=== PATIENT | female | born 1945 | race Caucasian/White ===

== ENCOUNTER 2019-11-24 00:26 | Emergency (ER) | payer OTHER, SELFPAY ==
--- NOTE | ~2019-11-24 | XR_ITS ---
EXAMINATION: XR chest 2V DATE: 11/24/2019 00:53 INDICATION: Left-sided chest pain TECHNIQUE: AP and lateral views of the chest are obtained. COMPARISON: 11/13/2017 FINDINGS: The lungs are free of acute opacities. There is no pleural effusion or pneumothorax. The ca rdiomediastinal silhouette is normal. There are bridging osteophytes at multiple levels in the spine, consistent with diffuse idiopathic skeletal hyperostosis (DISH). IMPRESSION: 1. No acute cardiopulmonary abnormality. Reviewed, dictated and finalized at location A. 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
[2019-11-24 00:27] VITALS: BP 143/81; PULSE 90; PULSE 91; RESP 16; TEMP 37.2; O2SAT 98
--- NOTE | 2019-11-24 00:38 | ECG_ITS ---
Measurements Intervals [place] Rate: 97 P: 46 LA: 151 QRS: -31 QRSD: 80 T: 52 QT: 349 QTc: 445 Interpretive Statements SINUS RHYTHM CONSIDER ANTEROSEPTAL INFARCT, AGE INDETERMINATE INFERIOR INFARCT, AGE INDETERMINATE BORDERLINE ST-T WAVE ABNORMALITY- LATERAL LEADS BASELINE ARTIFACT- I, III, AVL ABNORMAL ECG Electronically Signed On 11-24-2019 7:13:57 MEDICAL INSURANCE CLAIMS PROCESSOR by Blaine Malave D.O.
[2019-11-24 00:48] LABS: Basophils Absolute Auto 0.1 K/mm3 (0.0-0.1); Basophils Percent Auto 0.9 % (0.2-1.2); Eosinophils Absolute Auto 0.5 K/mm3 (0-0.3); Eosinophils Percent Auto 5.3 % (0-4.4); Hematocrit 43.6 % (37.0-47.0); Hemoglobin 14.7 g/dL (12.0-15.0); Immature Granulocyte Absolute 0.05 K/mm3 (0.00-0.031); Immature Granulocyte Percent A 0.5 % (0-0.5); Lymphocytes Absolute Auto 3.47 K/mm3 (0.9-3.2); Lymphocytes Percent Auto 35.6 % (18.3-44.2); Mean Corpuscular HGB Conc 33.7 g/dl (32-36); Mean Corpuscular Hemoglobin 29.5 pg (26-34); Mean Corpuscular Volume 87.4 fl (80-100); Mean Platelet Volume 11.1 fl (7.4-10.4); Monocytes Absolute Auto 0.7 K/mm3 (0.1-0.6); Monocytes Percent Auto 6.8 % (2.6-8.5); Neutrophils Percent Auto 50.9 % (45.5-73.1); Platelet Count Result 300 k/mm3 (150-375); Red Blood Count 4.99 M/mm3 (4.2-5.4); Red Cell Distribution Width 12.9 % (11.5-14.5); White Blood Count 9.8 K/mm3 (4.5-10.0)
[2019-11-24 00:58] LABS: INR 0.9; Prothrombin Time 12.1 Seconds (11.1-14.7)
[2019-11-24 00:59] LABS: Blood Urea Nitrogen 22 mg/dL (7-17); Calcium 9.5 mg/dL (8.4-10.2); Carbon Dioxide 29 mmol/L (22-30); Chloride 99 mmol/L (98-107); Estimated Glomerular Filt Rate 55; Glucose 114 mg/dL (65-105); Partial Thromboplastin Time 30.3 SECONDS (22.3-36.8); Potassium 4.3 mmol/L (3.4-5.0); Sodium 138 mmol/L (137-145)
[2019-11-24 01:11] LABS: Troponin I < 0.012 ng/mL (0.000-0.034)
--- NOTE | 2019-11-24 01:11 | ED.CHESTPAIN ---
HPI - Chest Pain General Chief Complaint: Chest Pain Stated Complaint: cp Time Seen by Provider: 11/24/19 01:12 Source: patient and RN notes reviewed Mode of arrival: EMS Limitations: no limitations History of Present Illness HPI narrative: Pt is a 74 y/o female presenting to the ED c/o CP. Pt reports she has been experiencing CP worsened with inhalation intermittently for a month. Pt states she experiencing intermittent sensations similar to a jesse horse that cause sharp pain. Pt states the painful sensations are usually on the lt side which radiate to her back, but are occasionally on the right. Pt states she went to an previously where she was prescribed Doxycycline. Pt also reports cough for 3 weeks, rash for 6 weeks on ABD, intermittent SOB, diaphoresis, and chronic BLE swelling, but denies jaw pain or arm pain. Pt states she has not had any recent air or long car travel nor does she receives estrogen therapy, but notes she does have a Hx of Diverticulitis. Pt denies being a smoker. Pt states she is not currently in any pain in her ED bed. Pertinent past history: other (None) Onset (ago): month(s) (1) Timing of current episode: episodic Pain location: left chest and right chest Pain radiation: back Exacerbating factors: other (Inhalation) Associated symptoms: diaphoresis, dyspnea (Intermittent), cough, leg swelling (Chronic) and other (Rash on ABD) Related Data Home Medications Medication Instructions Recorded Confirmed benzonatate 100 mg PO TID 11/24/19 doxycycline hyclate 100 mg PO DAILY 11/24/19 levothyroxine 125 mcg PO DAILY 11/24/19 lisinopril-hydrochlorothiazide 1 tablet PO DAILY 11/24/19 Allergies Allergy/AdvReac Type Severity Reaction Status Date / Time Penicillins Allergy Unknown Unknown Verified 11/24/19 00:34 Sulfa (Sulfonamide Allergy Unknown Flushing Verified 11/24/19 00:34 Antibiotics) Review of Systems Review of Systems: Narrative: CARDIOVASCULAR: Reports intermittent bilateral chest pain radiating to back. RESPIRATORY: Reports cough and intermittent dyspnea. SKIN: Reports rash on abdomen and diaphoresis. MUSCULOSKELETAL: Reports chronic BLE swelling. Denies jaw pain or arm pain. All systems reviewed & are unremarkable except as noted in HPI and below PMFSH Past Medical History Medical History HTN (hypertension) Hypothyroid Surgical History Surgical History H/O Spinal surgery H/O: hysterectomy Family History Family History Sibling Patient's sister is in good health Mother Family history of malignant neoplasm Patient's mother is Father Patient's father is Social History Social History Smoking status: Never smoker Alcohol intake: current Gender identity (if verbalized by the patient): Female Exam Narrative: Exam Narrative: GENERAL: Well-appearing, well-nourished, and in no acute distress. EYES: EOMI. NECK: Supple. CHEST: Clear to auscultation. No respiratory distress. Rt sided chest wall tenderness that reproduces pain. HEART: Regular rate and rhythm. No murmur heard. Normal peripheral pulses. ABDOMEN: Nondistended. EXTREMITIES: Normal range of motion. No edema. SKIN: Warm, dry, no rash. NEURO: No focal deficits. Alert and oriented. Course Vital Signs Vital signs: Vital Signs Temperature 37.2 C 11/24/19 00:27 Pulse Rate 90 11/24/19 00:27 Respiratory Rate 16 11/24/19 00:27 Blood Pressure 143/81 H 11/24/19 00:27 Pulse Oximetry 98 11/24/19 00:27 Temperature 37.2 C 11/24/19 00:27 Pulse Rate 84 11/24/19 04:45 Respiratory Rate 18 11/24/19 04:45 Blood Pressure 134/64 11/24/19 04:45 Pulse Oximetry 99 11/24/19 04:45 MDM - Chest Pain MDM Narrative Medical decision making narrative: Patient's EKG and labs ar
[2019-11-24 01:48] LABS: D Dimer 0.29 ug/mL (<0.48)
[2019-11-24] MEDS: KETOROLAC 15 MG/ML VIAL (*BKC) IV PUSH (01:48)
[2019-11-24] MEDS: SODIUM CHLORIDE 0.9% IV 1,000 ML 999 ML IV CONT (01:49)
[2019-11-24 02:16] VITALS: BP 105/41; PULSE 82; RESP 18; O2SAT 97
[2019-11-24 04:18] LABS: Troponin I < 0.012 ng/mL (0.000-0.034)
[2019-11-24 04:45] VITALS: BP 134/64; PULSE 84; RESP 18; O2SAT 99
--- NOTE | 2019-12-21 06:14 | PC.NURSE ---
LATE ENTRY This note is being entered to document information to the patient's record. The following information was omitted on [11/24/19], by [tri]. 1L NS infusion complete at 0240
== END 2019-11-24 04:48 | disposition home or self-care (01) ==
PROVIDERS: Emergency Provider Emergency Medicine; PCP Internal Medicine
DX: R07.89 Other chest pain (principal); I10 Essential (primary) hypertension; E03.9 Hypothyroidism, unspecified
CPT/HCPCS: 36415; 71046; 80048; 84484; 85025; 85380; 85610; 85730; 93005; 96360; 96361; 96374; 99284; J1885; J7030

== ENCOUNTER 2020-08-05 09:24 | Outpatient (CLI) | payer OTHER, SELFPAY ==
--- NOTE | ~2020-08-05 | US_ITS ---
EXAMINATION:US venous doppler LE LT INDICATION:Left leg pain and swelling TECHNIQUE: Multiple grayscale, color flow and Doppler images of the left lower extremity deep venous systems were obtained and reviewed. COMPARISON:No prior studies for comparison. FINDINGS: The common femoral, superficial femoral and popliteal veins demonstrate normal respiratory variation, augmentation and compressibility. Color flow is also seen within the posterior tibial, pe roneal, greater saphenous and profunda veins. IMPRESSION: 1: No lower extremity deep venous thrombosis. Reviewed, dictated and finalized at location B.
== END 2020-08-05 09:25 | disposition home or self-care (01) ==
PROVIDERS: PCP Internal Medicine; Visit Provider Nurse Practitioner
DX: M79.89 Other specified soft tissue disorders (principal)
CPT/HCPCS: 93971

== ENCOUNTER 2021-02-02 08:14 | Outpatient (CLI) | payer OTHER, SELFPAY ==
[2021-02-02 08:38] LABS: Alanine Aminotransferase 26 U/L (4-35); Albumin Level 4.5 g/dL (3.5-5.1); Alkaline Phosphatase 77 U/L (38-126); Anion Gap 8 mmol/L (8-16); Aspartate Amino Transferase 37 U/L (14-36); Bilirubin,Total 0.6 mg/dL (0.2-1.3); Blood Urea Nitrogen 23 mg/dL (7-17); Calcium 9.3 mg/dL (8.4-10.2); Carbon Dioxide 30 mmol/L (22-30); Chloride 102 mmol/L (98-107); Estimated Glomerular Filt Rate 49; Glucose 111 mg/dL (65-105); Potassium 4.3 mmol/L (3.4-5.0); Sodium 140 mmol/L (137-145)
[2021-02-02 09:09] LABS: Vitamin D 25 Hydroxy 39.6 ng/mL
[2021-02-02 09:33] LABS: Hemoglobin A1C 5.2 % (<5.7)
== END 2021-02-02 08:15 | disposition home or self-care (01) ==
PROVIDERS: PCP Internal Medicine; Visit Provider Nurse Practitioner
DX: Z79.899 Other long term (current) drug therapy (principal); E03.9 Hypothyroidism, unspecified; R73.02 Impaired glucose tolerance (oral); E55.9 Vitamin D deficiency, unspecified
CPT/HCPCS: 36415; 80053; 82306; 83036; 84443

== ENCOUNTER → 2021-08-31 02:54 | Outpatient (CLI) | payer OTHER, SELFPAY ==
[2021-08-31 19:23] LABS: SARS-CoV-2 RNA PCR Negative
== END ==
PROVIDERS: PCP Internal Medicine; Visit Provider Internal Medicine
DX: R68.89 Other general symptoms and signs (principal); Z20.822 Contact with and (suspected) exposure to COVID-19
CPT/HCPCS: C9803; U0003; U0005

== ENCOUNTER → 2021-12-01 08:03 | Outpatient (CLI) | payer OTHER, SELFPAY ==
[2021-12-01 20:41] LABS: SARS-CoV-2 RNA PCR Positive
== END ==
PROVIDERS: PCP Internal Medicine; Visit Provider Internal Medicine
DX: U07.1 COVID-19 (principal); R68.89 Other general symptoms and signs
CPT/HCPCS: C9803; U0003; U0005

== ENCOUNTER 2021-12-05 07:40 | Outpatient (RCR) | payer OTHER, SELFPAY ==
[2021-12-05 12:06] VITALS: BP 146/70; PULSE 92; RESP 20; TEMP 36.2; O2SAT 99
[2021-12-05] MEDS: FAMOTIDINE 20 MG TABLET PO (12:09)
[2021-12-05] MEDS: ACETAMINOPHEN 325 MG TABLET 650 MG PO (12:09)
[2021-12-05] MEDS: diphenhydrAMINE HCl CAP 25 MG CAPSULE PO (12:09)
[2021-12-05 13:38] VITALS: BP 137/70; PULSE 77; O2SAT 97
== END 2021-12-05 16:00 ==
LOC: AMCINF 07:40
PROVIDERS: PCP Internal Medicine; Visit Provider Internal Medicine Hematology & Oncology
DX: U07.1 COVID-19 (principal); I10 Essential (primary) hypertension
CPT/HCPCS: A9270; M0243; Q0244

== ENCOUNTER 2022-01-25 14:06 | Emergency (ER) | payer OTHER, SELFPAY ==
--- NOTE | ~2022-01-25 | CT_ITS ---
EXAMINATION: CT abdomen pelvis w con INDICATION: Left lower quadrant pain TECHNIQUE: Computed tomographic images of the abdomen and pelvis were obtained after the administrati on of 100 cc of Omnipaque 350 intravenous contrast. The dose-length product (DLP) was 504.90 mGy-cm. Automated exposure control and iterative reconstruction technique were employed. COMPARISON: None available FINDINGS: Minimal dependent atelectasis is present in the lung bases. The heart size is normal. The g allbladder is surgically absent. There is mild enlargement of the common bile duct and central intrah epatic ducts which is likely due to post cholecystectomy state. The liver is diffusely low in attenua tion when compared with the spleen, consistent with hepatic steatosis. The spleen, pancreas, and adre nal glands are normal. Cysts of the kidneys measure up to 6 mm on right. Colonic diverticulosis is no myesha. There is wall thickening of the proximal sigmoid colon with edematous stranding of the adjacent pericolic fat. There is no evidence of abscess or perforation. No pathologically enlarged abdominal o r pelvic lymph nodes are identified. There are no dilated loops of bowel. A small fat-containing umbi lical hernia is noted. There is calcified atherosclerosis. There is severe lumbar spondylosis. IMPRESSION: 1. Acute, uncomplicated diverticulitis of the proximal sigmoid colon. 2. Diffuse hepatic steatosis. Reviewed, dictated and finalized at location B. INSERTER
[2022-01-25 14:08] VITALS: BP 153/79; PULSE 82; RESP 18; TEMP 37.2; O2SAT 98
[2022-01-25 14:38] LABS: Basophils Absolute Auto 0.1 K/mm3 (0.0-0.1); Basophils Percent Auto 0.5 % (0.2-1.2); Eosinophils Absolute Auto 0.5 K/mm3 (0-0.3); Eosinophils Percent Auto 3.3 % (0-4.4); Hematocrit 41.4 % (37.0-47.0); Hemoglobin 14.2 g/dL (12.0-15.0); Immature Granulocyte Absolute 0.04 K/mm3 (0.00-0.031); Immature Granulocyte Percent A 0.3 % (0-0.5); Lymphocytes Absolute Auto 2.29 K/mm3 (0.9-3.2); Lymphocytes Percent Auto 16.2 % (18.3-44.2); Mean Corpuscular HGB Conc 34.3 g/dl (32-36); Mean Corpuscular Hemoglobin 29.2 pg (26-34); Mean Corpuscular Volume 85.2 fl (80-100); Mean Platelet Volume 10.8 fl (7.4-10.4); Monocytes Absolute Auto 1.1 K/mm3 (0.1-0.6); Monocytes Percent Auto 7.6 % (2.6-8.5); Neutrophils Absolute Auto 10.2 K/mm3 (1.3-6.7); Neutrophils Percent Auto 72.1 % (45.5-73.1); Platelet Count Result 282 k/mm3 (150-375); Red Blood Count 4.86 M/mm3 (4.2-5.4); Red Cell Distribution Width 12.4 % (11.5-14.5); White Blood Count 14.1 K/mm3 (4.5-10.0)
[2022-01-25 14:45] LABS: Add Urine Microscopic? YES; Appearance Urine Cloudy (Clear); Bacteria Urine Trace /hpf; Bilirubin Urine Negative (Negative); Blood Urine Negative (Negative); Budding Yeast Urine Present /hpf; Color Urine Yellow (Yellow); Glucose Urine UA Negative (Negative); Ketones Urine Negative (Negative); Leukocyte Esterase Ur 2+ LEU/UL (Negative); Mucus Urine Rare /lpf; Nitrate Urine Negative (Negative); Protein Urine Negative (Negative); Specific Grav Ur 1.017 (1.001-1.035); Squamous Epithelial Cell Urine Few /hpf (Few); Urobilinogen Urine Negative mg/dL (<2.0)
[2022-01-25 14:49] LABS: Alanine Aminotransferase 40 U/L (4-35); Albumin Level 4.5 g/dL (3.5-5.1); Alkaline Phosphatase 92 U/L (38-126); Anion Gap 6 mmol/L (8-16); Aspartate Amino Transferase 41 U/L (14-36); Bilirubin,Total 0.7 mg/dL (0.2-1.3); Blood Urea Nitrogen 21 mg/dL (7-17); Calcium 9.2 mg/dL (8.4-10.2); Carbon Dioxide 26 mmol/L (22-30); Chloride 103 mmol/L (98-107); Estimated CRCL calculation 51 ml/min; Estimated Glomerular Filt Rate > 60; Glucose 111 mg/dL (65-110); Lipase 158 U/L (23-300); Potassium 4.5 mmol/L (3.4-5.0); Sodium 135 mmol/L (137-145)
--- NOTE | 2022-01-25 15:08 | ED.ABDPAIN ---
HPI - Abdominal Pain General Chief Complaint: Abdominal Pain Stated Complaint: ABD pain Time Seen by Provider: 01/25/22 15:05 Source: RN notes reviewed History of Present Illness HPI narrative: Patient presents emergency room from home for abdominal pain. Patient states abdominal pain began last night pain is located left lower quadrant does not radiate. Described as sharp and stabbing. Patient states she does have a history of diverticulitis and feels similar. She denies any fevers or chills chest pain shortness of breath, nausea vomiting diarrhea or any other symptoms. States she took Aleve at home for the pain with minimal relief. States last colonoscopy was 10 years ago Related Data Home Medications Medication Instructions Recorded Confirmed aspirin 81 mg tablet,delayed 81 mg PO DAILY 01/13/20 12/05/21 release Allergies Allergy/AdvReac Type Severity Reaction Status Date / Time Penicillins Allergy Unknown Unknown Verified 12/05/21 12:02 Sulfa (Sulfonamide Allergy Unknown Flushing Verified 12/05/21 12:02 Antibiotics) Review of Systems Review of Systems: Gen.: Denies fevers or chills ENT: Denies congestion Respiratory: Denies shortness of breath or cough CV: Denies chest pain or palpitations GI: See HPI denies burning, urgency, frequency or hematuria Musculoskeletal: Denies back pain or muscle pain Neuro: Denies numbness, tingling, weakness or focal weakness Skin: Denies rash Except as documented, all other systems reviewed and negative PMFSH Past Medical History Medical History (Updated 01/25/22 @ 16:40 by Shay Liu DO) HTN (hypertension) Hypothyroid Surgical History Surgical History H/O Spinal surgery H/O: hysterectomy Family History Family History Sibling Patient's sister is in good health Mother Family history of malignant neoplasm Patient's mother is Father Patient's father is Social History Social History Smoking status: Never smoker Alcohol intake: current Alcohol use details: social Gender identity (if verbalized by the patient): Female Exam Narrative: APPEARANCE: No acute distress, nontoxic, resting in bed HEENT: Normocephalic, atraumatic, OMM RESPIRATORY: No respiratory distress, clear to auscultation bilaterally with no rhonchi wheezing or rales CARDIOVASCULAR: RRR s murmur ABDOMINAL: Soft nondistended tender palpation left lower quadrant no tenderness left upper quadrant, right upper quadrant right lower quadrant no rebound or guarding MUSCULOSKELETAl: Moves all extremities. No clubbing, cyanosis or edema. NEURO: Awake and alert. Following commands, speech normal, no focal deficits SKIN:: Warm, dry. Normal Color PSYCHIATRIC: Normal affect/mood Course Course Emergency Course: Discussed with Dr. Gao presentation work-up agrees plan for discharge [facility] Discussed with patient results of workup and diagnosis. Repeat abdominal exam is soft with tenderness left lower quadrant but no surgical present. The patient does prefer to go home discussed need for follow-up with primary care, proper use of medication, and reasons to return to the emergency department. Patient understands and agrees to current treatment plan Vital Signs Vital signs: Vital Signs Temperature 99 F 01/25/22 14:08 Pulse Rate 82 01/25/22 14:08 Respiratory Rate 18 01/25/22 14:08 Blood Pressure 153/79 H 01/25/22 14:08 Pulse Oximetry 98 01/25/22 14:08 Temperature 99 F 01/25/22 14:08 Pulse Rate 82 01/25/22 14:08 Respiratory Rate 18 01/25/22 14:08 Blood Pressure 149/74 H 01/25/22 15:12 Pulse Oximetry 97 01/25/22 16:00 MDM - Abdominal Pain Lab Data Result diagrams: 01/25/22 14:19 01/25/22 14:19
[2022-01-25 15:12] VITALS: BP 149/74; O2SAT 97
[2022-01-25 15:28] VITALS: O2SAT 97
[2022-01-25] MEDS: SODIUM CHLORIDE 0.9% IV 1,000 ML 999 ML IV CONT (15:29)
[2022-01-25 15:35] VITALS: O2SAT 96
[2022-01-25 15:45] VITALS: O2SAT 96
[2022-01-25 16:00] VITALS: O2SAT 97
[2022-01-25] MEDS: CIPROFLOXACIN 500 MG TAB PO (16:17)
[2022-01-25] MEDS: metroNIDAZOLE 250 MG TABLET 500 MG PO (16:18)
[2022-01-25] MEDS: MORPHINE SULFATE (*CRX) 2 MG/ML INJ IV PUSH (16:24)
== END 2022-01-25 17:08 | disposition home or self-care (01) ==
PROVIDERS: Emergency Medicine; Emergency Provider Emergency Medicine; PCP Internal Medicine
DX: R10.9 Unspecified abdominal pain (principal); K57.92 Diverticulitis of intestine, part unspecified, without perforation or abscess without bleeding; K76.0 Fatty (change of) liver, not elsewhere classified; I10 Essential (primary) hypertension; E03.9 Hypothyroidism, unspecified
CPT/HCPCS: 36415; 74177; 80053; 81001; 83690; 85025; 96361; 96374; 96375; 99284; A9270; J0131; J2270; J7030; Q9967

== ENCOUNTER 2022-10-13 09:24 | Outpatient (CLI) | payer OTHER, SELFPAY ==
[2022-10-13 10:25] LABS: Alanine Aminotransferase 35 U/L (6-35); Albumin Level 4.5 g/dL (3.5-5.1); Alkaline Phosphatase 71 U/L (38-126); Anion Gap 9 mmol/L (8-16); Aspartate Amino Transferase 33 U/L (14-36); Bilirubin,Total 0.8 mg/dL (0.2-1.3); Blood Urea Nitrogen 19 mg/dL (7-17); Carbon Dioxide 27 mmol/L (22-30); Chloride 104 mmol/L (98-107); Cholesterol 223 mg/dL (0-200); Estimated Glomerular Filt Rate > 60; Glucose 108 mg/dL (65-110); HDL Direct 41 mg/dL; Sodium 140 mmol/L (137-145); Triglycerides 244 mg/dL (<150)
[2022-10-13 10:36] LABS: LDL Cholesterol Direct 108 mg/dL
[2022-10-13 10:55] LABS: Thyroid Stimulating Hormone 0.285 uIU/mL (0.465-4.680)
== END 2022-10-13 09:25 | disposition home or self-care (01) ==
PROVIDERS: PCP Internal Medicine; Visit Provider Nurse Practitioner
DX: E03.9 Hypothyroidism, unspecified (principal); E78.5 Hyperlipidemia, unspecified
CPT/HCPCS: 36415; 80053; 80061; 84443

== ENCOUNTER 2022-10-25 12:55 | Outpatient (CLI) | payer OTHER, SELFPAY ==
--- NOTE | ~2022-10-25 | DEXA_ITS ---
Bone Density Report Name: AALIYAH VALENCIA Age: 77 Sex: Female Ethnicity: White Date of : 1945 Indication: postmenopausal; screening for osteoporosis; parental hip fracture; height loss; asthma or emphysema; hysterectomy; secondary osteoporosis; Referring Provider: MAIDA BUTT Study: Bone densitometry was performed. Exam Date: October 25, 2022 Accession number: [id number] Bone Density: Region BMD T-score Z-score Classification AP Spine(L1-L4) 1.053 0.1 2.5 Normal Femoral Neck (Left) 0.716 -1.2 0.9 Osteopenia Total Hip (Left) 0.901 -0.3 1.5 Normal Femoral Neck (Right) 0.670 -1.6 0.5 Osteopenia Total Hip (Right) 0.825 -1.0 0.8 Normal Total Hip Mean 0.863 -0.7 1.2 Normal World Health Organization criteria for BMD impression classify patients as: Normal (T-score at or above -1.0), Osteopenia (T-score between -1.0 and -2.5), or Osteoporosis (T-score at or below -2.5). 10-year Fracture Risk(1): Major Osteoporotic Fracture 20% Hip Fracture 10% Reported Risk Factors: [place] (), Neck BMD=0.670, BMI=28.2, parental fracture, secondary osteoporosis (1) FRAX(R) Version 3.08. Fracture probability calculated for an untreated patient. Fracture probability may be lower if the patient has received treatment. Clinical Information Provided by Patient: Parent has had a hip fracture Has secondary osteoporosis Has used the following medications: Vitamin D Has the following medical conditions: Asthma or Emphysema, Hysterectomy Patient maximum height was 64 Menopause Age: 35 No regular weight bearing exercise Drinks caffeinated beverages Onset of menses at age 16 Number of children 3 Impression: The patient has low bone mass, based on the Right Femoral Neck T-score. The patient has an estimated ten-year risk of hip fracture of 10% and an estimated ten-year risk of major fracture of 20%, based on the WHO FRAX algorithm. The patient has risk factors, including: parental hip fracture. Discussion: BONE DENSITY IS LOW AT ONE OR MORE SKELETAL SITES. THE PATIENT'S BMD AND CLINICAL RISK FACTORS CONTRIBUTE TO THIS PATIENT'S HIGH RISK OF FRACTURE. This patient's lowest T-score is low at one or more skeletal sites. It meets the World Health Organization's (WHO) criteria for ?low bone mass? (T-score between -1.0 and -2.5). The patient's 10-year risk of hip fracture and 10 year risk of a major osteoporotic fracture as calculated by FRAX exceeds the threshold where pharmacological therapy is recommended by the National Osteoporosis Foundation (NOF). However, all treatment decisions require clinical judgment and consideration of individual patient factors, including patient preferences, comorbidities, previous drug use, risk factors not captured in the FRAX model (e.g., frailty, falls, v
== END 2022-10-25 12:56 | disposition home or self-care (01) ==
PROVIDERS: PCP Internal Medicine; Visit Provider Internal Medicine
DX: Z78.0 Asymptomatic menopausal state (principal); E55.9 Vitamin D deficiency, unspecified; M85.852 Other specified disorders of bone density and structure, left thigh; M85.851 Other specified disorders of bone density and structure, right thigh
CPT/HCPCS: 77080

== ENCOUNTER 2023-01-24 15:08 | Outpatient (CLI) | payer OTHER, SELFPAY ==
--- NOTE | ~2023-01-24 | XR_ITS ---
XR chest 2V DATE: 01/24/2023 15:27 INDICATION: Persistent cough after Covid infection 2 weeks ago TECHNIQUE: PA and lateral views COMPARISON: 11/24/2019 AP and lateral chest FINDINGS: Azygos lobe, normal variant. Normal heart size. Aortic arch calcification. No hilar or mediastinal enlargement. No pulmonary infiltrate or consolidation, pleural effusion or pulmonary vascular congestion or pneumo thorax. Mild thoracolumbar dextro scoliosis. Degenerative changes of the cervical, thoracic and lumbar spine. Status post cholecystectomy. IMPRESSION: No active cardiopulmonary disease Reviewed, dictated and finalized at location B. AINER COORDINATOR
== END 2023-01-24 15:09 | disposition home or self-care (01) ==
LOC: ANHIMG 15:12
PROVIDERS: PCP Physician Assistant; Visit Provider Physician Assistant
DX: R05.9 Cough, unspecified (principal)
CPT/HCPCS: 71046

== ENCOUNTER 2023-06-27 12:12 | Outpatient (CLI) | payer OTHER, SELFPAY ==
[2023-06-27 13:12] LABS: Hematocrit 41.5 % (37.0-47.0); Hemoglobin 14.1 g/dL (12.0-15.0); Mean Corpuscular Hemoglobin 29.3 pg (26-34); Mean Corpuscular Volume 86.3 fl (80-100); Mean Platelet Volume 10.9 fl (7.4-10.4); Platelet Count Result 255 k/mm3 (150-375); Red Blood Count 4.81 M/mm3 (4.2-5.4); White Blood Count 9.9 K/mm3 (4.5-10.0)
[2023-06-27 13:23] LABS: Alanine Aminotransferase 43 U/L (6-35); Albumin Level 4.5 g/dL (3.5-5.1); Alkaline Phosphatase 71 U/L (38-126); Anion Gap 7 mmol/L (8-16); Aspartate Amino Transferase 35 U/L (14-36); Bilirubin,Total 0.8 mg/dL (0.2-1.3); Blood Urea Nitrogen 20 mg/dL (7-17); Calcium 9.1 mg/dL (8.4-10.2); Carbon Dioxide 29 mmol/L (22-30); Chloride 103 mmol/L (98-107); Cholesterol 219 mg/dL (0-200); Estimated Glomerular Filt Rate > 60; Glucose 107 mg/dL (65-110); HDL Direct 38 mg/dL; Sodium 139 mmol/L (137-145); Triglycerides 266 mg/dL (<150)
[2023-06-27 13:34] LABS: LDL Cholesterol Direct 126 mg/dL
[2023-06-27 13:42] LABS: Free T4 Free Thyroxine 1.41 ng/mL (0.78-2.19)
[2023-06-27 13:54] LABS: Thyroid Stimulating Hormone 0.181 uIU/mL (0.465-4.680)
[2023-06-27 14:30] LABS: Folic Acid > 20.0 ng/mL (2.76->20)
[2023-06-30 22:59] LABS: Vitamin D 1,25 (OH)2 Total 55 pg/mL (18-72); Vitamin D2 1,25 (OH)2 <8 pg/mL; Vitamin D3 1,25 (OH)2 55 pg/mL
== END 2023-06-27 12:13 | disposition home or self-care (01) ==
PROVIDERS: PCP Physician Assistant; Visit Provider Physician Assistant
DX: R53.83 Other fatigue (principal); E55.9 Vitamin D deficiency, unspecified; E03.9 Hypothyroidism, unspecified; I10 Essential (primary) hypertension; E78.5 Hyperlipidemia, unspecified
CPT/HCPCS: 36415; 80053; 80061; 82607; 82652; 82746; 84439; 84443; 85027

== ENCOUNTER 2024-03-22 13:22 | Outpatient (CLI) | payer OTHER, SELFPAY ==
[2024-03-22 14:14] LABS: Free T4 Free Thyroxine 1.72 ng/mL (0.78-2.19)
[2024-03-22 14:28] LABS: Thyroid Stimulating Hormone 0.068 uIU/mL (0.465-4.680)
== END 2024-03-22 13:23 | disposition home or self-care (01) ==
PROVIDERS: PCP Physician Assistant; Visit Provider Physician Assistant
DX: E03.9 Hypothyroidism, unspecified (principal)
CPT/HCPCS: 36415; 84439; 84443

== ENCOUNTER 2025-01-12 09:37 | Outpatient (CLI) | payer OTHER, SELFPAY ==
[2025-01-12 10:23] LABS: Basophils Absolute Auto 0.1 K/mm3 (0.0-0.1); Basophils Percent Auto 1.2 % (0.2-1.2); Eosinophils Absolute Auto 0.4 K/mm3 (0-0.3); Eosinophils Percent Auto 4.9 % (0-4.4); Hematocrit 40.7 % (37.0-47.0); Hemoglobin 13.7 g/dL (12.0-15.0); Immature Granulocyte Absolute 0.03 K/mm3 (0.00-0.031); Immature Granulocyte Percent A 0.4 % (0-0.5); Lymphocytes Absolute Auto 2.17 K/mm3 (0.9-3.2); Mean Corpuscular HGB Conc 33.7 g/dl (32-36); Mean Corpuscular Hemoglobin 29.4 pg (26-34); Mean Corpuscular Volume 87.3 fl (80-100); Mean Platelet Volume 11.1 fl (7.4-10.4); Monocytes Absolute Auto 0.5 K/mm3 (0.1-0.6); Monocytes Percent Auto 6.8 % (2.6-8.5); Neutrophils Absolute Auto 4.3 K/mm3 (1.3-6.7); Neutrophils Percent Auto 57.7 % (45.5-73.1); Platelet Count Result 251 k/mm3 (150-375); Red Blood Count 4.66 M/mm3 (4.2-5.4); White Blood Count 7.5 K/mm3 (4.5-10.0)
--- OUTSIDE RECORDS SUMMARY | 2025-01-12 10:29 | XMS_ITS | Referral Summary ---
Author Organization [facility] [address] [place] [address] Care Team Providers Care Voice Pathologist Name Role Phone Vishnu Yen MD Unavailable Keisha Ramirez MD Primary Care Provider Encounters Date Type Department Care Team Description 11/17/2024 2:15 PM QUALITY ASSURANCE LAB TECHNICIAN Office Visit [facility] Care at [address] [address] Dawna Lovelace MD Lichen sclerosus et atrophicus (Primary Dx); Well woman exam; Yeast dermatitis from Last 3 Months Allergies Active Allergy Reactions Criticality Noted Date Comments Penicillins Rash Medium 01/21/2020 Sulfa (Sulfonamide Antibiotics) Rash Medium 02/2020 Medications lisinopril-hydr oCHLOROthiazide (ZESTORETIC) 10-12.5 mg per tabletIndicatio ns:hypertension Take 1 tablet by mouth daily with breakfast 9 Active aspirin 81 mg enteric coated tabletIndicatio ns:heart health Take 1 tablet (81 mg total) by mouth nightly Last dose 3/[address] Rojas Active levothyroxine (SYNTHROID) 125 mcg tablet 0 Active nystatin creamIndication s:Yeast dermatitis Apply topically as needed (rash in groin area) 30 g 2 Active clobetasoL (TEMOVATE) 0.05 % ointmentIndicat ions:Lichen sclerosus et atrophicus Apply twice a day for up to 21 days prn, then take a week off. 30 g 1 4 Active Active Problems Problem Noted Date Diagnosed Date Bruising 06/25/2023 Assessment & Plan (08/02/2023 5:01 AM CDT): Even though her labs were reviewed as normal she was strongly encouraged to see her pcp I am not sure why she is hesitant to do so, but I suspect it is because of the issues her is dealing with currently. Assessment & Plan (06/25/2023 5:33 PM CDT): She was instructed to call pcp and let him know what is going on She was worried that it was breast cancer or melanoma and I have assured her that it is not Not to use any more self clinton To get me a copy of her labs as soon as she has the results. Well woman exam 12/11/2022 Overview (06/25/2023): Lab: Pap:all normal Due for labs. Migdalia:will start Colonoscopy:she is doing cologuard BMD:2022 Assessment & Plan (11/17/2024 2:00 PM QUALITY ASSURANCE LAB TECHNICIAN): Due in jun 2025 Assessment & Plan (06/25/2023 3:42 PM CDT): Complete exam done. Assessment & Plan (12/11/2022 10:55 AM QUALITY ASSURANCE LAB TECHNICIAN): Due for complete exam in 6m Lichen sclerosus et atrophicus 01/16/2022 Assessment & Plan (11/17/2024 2:00 PM QUALITY ASSURANCE LAB TECHNICIAN): To use meds as directed Not to be afraid of using too much To use steroid on the posterior fourchette for another week and then as needed. Assessment & Plan (06/25/2023 5:34 PM CDT): Pale in a keyhole distrubution To continue to use creams to her comfort Nothing to bx today. Will reevaluate in 6m. Assessment & Plan (12/11/2022 10:54 AM QUALITY ASSURANCE LAB TECHNICIAN): Doing well To continue with her creams prn Precautions given rto 6m Assessment & Plan (10/16/2022 12:38 PM QUALITY ASSURANCE LAB TECHNICIAN): Will refill temovate and nystatin Use reviewed To stop neosporin To try A&D ointment To get more air to the vulva To try sitz baths rto 6 weeks SITE DIRECTOR done Will treat once the results are back. We discussed placing a cloth between the buttocks to decrease the friction We discussed ways to ease the pain with urination Assessment & Plan (01/16/2022 4:05 PM QUALITY ASSURANCE LAB TECHNICIAN): Will treat with temovate. Use reviewed rto 6m Precautions given. To come back sooner if the steroid doesn't work or she gets an area that wont heal. 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 Overview (01/22/2020): Added automatically from request for surgery [id number] Disease of eye 01/22/2020 Overview (01/22/2020): Added automatically from request for surgery [id number] Resolved Problems Problem Noted Date Diagnosed Date Resolved Date Yeast dermatitis 01/16/2022 11/17/2024 Assessment & Plan (08/02/2023 5:00 AM CDT): Feeling better Assessment & Plan (01/16/2022 4:05 PM QUALITY ASSURANCE LAB TECHNICIAN): To nystatin Use reviewed Social History Tobacco Use Types Packs/Day Years Used Date Smoking Tobacco: Never Smokeless Tobacco: Never Tobacco Cessation:Counseling Given: Not Answered Alcohol Use Standard Drinks/Week Comments Yes 2 (1 standard drink = 0.6 oz pur e alcohol) Humiliation, Afraid, Rape, and Kick questionnair e Answer Date Recorded Within the last year, have y ou been afraid of your partner or ex-partner? No 06/25/2023 Within the last year, have y ou been humiliated or emotionally abused in other ways by your partner or ex-partner? No Within the last year, have y ou been kicked, hit, slapped, or otherwise physically hurt by your partner or ex-partner? No 06/25/2023 Within the last year, have y ou been raped or forced to have any kind of sexual activity by your partner or ex-partner? No 06/25/2023 AUDIT-C Answer Date Recorded Q1: How often do you have a drink containing alc ohol? 2-4 times a month 01/16/2022 Average Number of Drinks Not on file 022 Frequency of Binge Drinking Not on file 12/21 PHQ-2 Answer Date Recorded PHQ-2 Total Score (If total score is 3 or more points, staff should administer the PHQ-9) 0 06/25/2023 Comments No Sex and Gender Information Value Date Recorded Sex Assigned at Not on file Legal Sex Female 3:08 AM QUALITY ASSURANCE LAB TECHNICIAN Gender Identity Female 03/13/2021 9:24 PM CDT Sexual Orientation Straight 03/13/2021 9: 24 PM CDT Last Filed Vital Signs Vital Sign Reading Time Taken Comments Blood Pressure 132/72 11/17/2024 1:42 PM QUALITY ASSURANCE LAB TECHNICIAN Pulse 85 07/30/2023 12:27 PM CDT Temperature 36.2 C (97.2 F) 01/26/2020 3:16 PM CDT Respiratory Rate 17 01/26/2020 10:50 AM CDT Oxygen Saturation 94% 01/26/2020 4:10 PM CDT Inhaled Oxygen Concentration - - Weight 69.4 kg (153 lb) 11/17/2024 1:42 PM QUALITY ASSURANCE LAB TECHNICIAN Height 160 cm (5' 3 ) 11/17/2024 1:42 PM QUALITY ASSURANCE LAB TECHNICIAN Body Mass Index 27.1 11/17/2024 1:42 PM QUALITY ASSURANCE LAB TECHNICIAN Plan of Treatment Not on file Procedures Procedure Name Priority Date/Time Associated Diagnosis Comments HEPATITIS C ANTIBODY Routine 04/06/2020 9:54 AM CDT from Last 3 Months or Most Recently Relevant to Health Maintenance Results * Hepatitis C antibody (04/06/2020 9:54 AM CDT) Hep C Ab NONREACT NONREACTIVE [facility] Comment: Siemens CentaurXP using VERN (chemiluminescent immunoassay) technology. NONREACTIVE: Antibodies to Hepatitis C not detected. This does not exclude early acute Hepatitis C infection, possibility of exposure to Hepatitis C, antibodies below detection limit, or to lack of antibody reactivity to the antigen used in this assay. EQUIVOCAL: Antibodies to Hepatitis C may or may not be present. Sample to be confirmed by real-time PCR method. REACTIVE: Antibodies to Hepatitis C detected.Sample to be confirmed by real-time PCR method. 04/06/2020 9:54 AM CDT 04/06/2020 10:41 AM CDT Narrative Resulting Agency Comment CLI us Cristo Summers MD PhD LAB MICROBIOLOGY - [facility] AL ORDERABLES Final Result [facility] [address] [place] [address], [facility] [phone] from Last 3 Months or Most Recently Relevant to Health Maintenance Insurance [employer] [facility] [employer] PPO Care Teams Voice Pathologist Relationship Specialty Start Date End Date Keisha Ramirez MD [address] [place] [address] PCP - General Vascular Surgery 12/11/22 Vishnu Yen MD Referring Physician Ophthalmology 01/21/20
--- OUTSIDE RECORDS SUMMARY | 2025-01-12 10:29 | XMS_ITS | Clinical Summary ---
Author Organization [facility] Address [facility] [place] [address] Care Team Providers Care Study Lead Name Role Phone Shine Gao DO Primary Care Provider [phone] Allergies Active Allergy Reactions Criticality Noted Date Comments Penicillins Rash Low 09/01/2020 Sulfa Antibiotics Rash Low 09/01/2020 Medications lisinopril-hydro CHLOROthiazide 10-12.5 MG tablet Take 1 tablet by mouth daily. 11/16/2019 Active levothyroxine 125 MCG tablet Take 125 mcg by mouth daily. 08/05/2020 Active aspirin EC 81 MG tablet Take 81 mg by mouth daily. Active Docusate Sodium (COLACE CLEAR OR) Take 1 tablet by mouth as needed. Active Active Problems Problem Noted Date Diagnosed Date Sarcoidosis 09/01/2020 Other specified hypothyroidism 09/01/2020 Family History Medical History Relation Comments Heart Disease Father malaria Father heart problems d ue to having malaria 11 times from the was Cancer Mother Relation Status Comments Father Mother Social History Tobacco Use Types Packs/Day Years Used Date Smoking Tobacco: Never Smokeless Tobacco: Never Alcohol Use Standard Drinks/Week Comments Yes 0 (1 standard drink = 0.6 oz pur e alcohol) socially PHQ-2 Answer Date Recorded PHQ-2 Score - If the patient scores above 3, please move on to questions 3-9 2 09/01/2020 Comments Unknown Sex and Gender Information Value Date Recorded Sex Assigned at Not on file Legal Sex Female 7:42 PM CDT Gender Identity Not on file Sexual Orientation Not on file Last Filed Vital Signs Vital Sign Reading Time Taken Comments Blood Pressure 140/78 09/01/2020 8:29 AM CDT Pulse 85 09/01/2020 8:29 AM CDT Temperature 36.5 C (97.7 F) 09/01/2020 8:29 AM CDT Respiratory Rate 18 09/01/2020 8:29 AM CDT Oxygen Saturation 95% 09/01/2020 8:29 AM CDT Inhaled Oxygen Concentration - - Weight 73.9 kg (163 lb) 09/01/2020 8:29 AM CDT Height 160 cm (5' 3 ) 09/01/2020 8:29 AM CDT Body Mass Index 28.87 09/01/2020 8:29 AM CDT Plan of Treatment Health Maintenance Due Date Last Done Comments Hepatitis C 1965 DTaP, Tdap and Td Vaccines ( 1 - Tdap) 1966 Zoster Vaccines (1 of 2) 1997 Annual Medicare Wellness Visit 2012 Dexa Scan (General) 2012 Pneumococcal Vaccine: 65+ Ye ars (1 of 1 - PCV) 2012 RSV Immunization or 60+ Years (1 - 1-dose 75+ series) 2022 COVID-19 Vaccine ( - 2023-2 5 season) 2024 Influenza Adult (#1) 2024 Meningococcal B Vaccine Aged Out No l onger eligible based on patient's age to complete this topic Meningococcal Vaccine Aged Out No markell karen eligible based on patient's age to complete this topic RSV Immunizations Under 20 Months Aged Out No longer eligible based on patient's age to complete this topic Insurance ESSENCE Care Teams Study Lead Relationship Specialty Start Date End Date Shine Gao DO [address] [address] PCP - General INTERNAL MEDICINE 01/14/20
--- OUTSIDE RECORDS SUMMARY | 2025-01-12 10:29 | XMS_ITS | Clinical Summary ---
Author Organization [facility] 2 Address [address] [facility] [place] [address] Care Team Providers Care Benzol Still Operator Name Role Phone Vishnu Yen MD Unavailable [phone] Keisha Ramirez MD Primary Care Provider Allergies Active Allergy Reactions Criticality Noted Date [...] BMD:2022 Assessment & Plan (11/17/2024 2:00 PM MATERIAL REQUISITIONER): Due in jun 2025 Assessment & Plan (06/25/2023 3:42 PM CDT): Complete exam done. 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 Assessment & Plan (06/25/2023 5:34 PM CDT): Pale in a keyhole distrubution To continue to use creams to her comfort Nothing to bx today. Will reevaluate in 6m. Assessment & Plan (12/11/2022 10:54 AM MATERIAL REQUISITIONER): Doing well To continue with her creams prn Precautions given rto 6m Assessment & Plan (10/16/2022 12:38 PM MATERIAL REQUISITIONER): Will refill temovate and nystatin Use reviewed To stop neosporin To try A&D ointment To get more air to the vulva To try sitz baths rto 6 weeks MLT done Will treat once the results are back. We discussed placing a cloth between the buttocks to decrease the friction We discussed ways to ease the pain with urination Assessment & Plan (01/16/2022 4:05 PM MATERIAL REQUISITIONER): Will treat with temovate. Use reviewed rto 6m Precautions given. To come back sooner if the steroid doesn't work or she gets an area that wont heal. 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 Overview (01/22/2020): Added automatically from request for surgery [id number] Disease of eye 01/22/2020 Overview (01/22/2020): Added automatically from request for surgery [id number] Resolved Problems Problem Noted Date Diagnosed Date Resolved Date Yeast dermatitis 01/16/2022 11/17/2024 Assessment & Plan (08/02/2023 5:00 AM CDT): Feeling better Assessment & Plan (01/16/2022 4:05 PM MATERIAL REQUISITIONER): To nystatin Use reviewed Encounters Date Type Department Care Team Description 11/17/2024 2:15 PM MATERIAL REQUISITIONER Office Visit [facility] at [address] [address] Dawna Lovelace MD Lichen sclerosus et atrophicus (Primary Dx); Well woman exam; Yeast dermatitis from Last 3 Months Surgical History Surgery Date Site/Laterality Comments HYSTERECTOMY 11/19/1979 - 11/18/1980 GALLBLADDER SURGERY 11/19/2016 - 11/18/2017 BACK SURGERY 11/19/1981 - 11/18/1982 EYE SURGERY CHOLECYSTECTOMY Medical History Medical History Date Comments Thyroid disease Orbital mass High blood pressure Delayed emergence from gener al anesthesia cholecystectomy-reports that she had a student working with the anesthesiologist. She reports she was given too much anesthesia. Reports difficultly arousing postoperatively and states her blood gases were low . Had to stay inpatient for 2 days. Denies any issues with other subsequent surgeries. Hypothyroidism Family History Medical History Relation Name Comments Heart attack Father Cataracts Mother Heart attack Mother Transient ischemic attack Mother Diabetes Mother's Sister Thyroid disease Mother's Sister Heart disease Sister Cancer Neg Hx no colon, breas t or timber faller cancer no change cmt 06/25/23 Relation Name Status Comments Father Mother Mother's Sister Sister Social History Tobacco Use Types Packs/Day Years [...] on file Legal Sex Female 3:08 AM MATERIAL REQUISITIONER Gender Identity Female 03/13/2021 9:24 PM CDT Sexual Orientation Straight 03/13/2021 9: 24 PM CDT Obstetrics History Para Term AB IAB SAB Ectopic Multiple Livin g Live Births 3 3 3 3 3 Date Outcome GA Total Labor Labor//3rd Weight Sex Type Anes PTL Esperanza A1 A5 Name Clin 4 Term 2.92 kg (6 lb 7 oz) M Vag-S pont Living 6 Term 3.09 kg (6 lb 13 oz) M Ediwn-S pont Living 7 Term 2.722 kg (6 lb) Nicolasa VictorS pont Living Last Filed Vital Signs Vital Sign Reading Time Taken Comments Blood Pressure 132/72 11/17/2024 1:42 PM MATERIAL REQUISITIONER Pulse 85 07/30/2023 12:27 PM CDT Temperature 36.2 C (97.2 F) 01/26/2020 3:16 PM CDT Respiratory Rate 17 01/26/2020 10:50 AM CDT Oxygen Saturation 94% 01/26/2020 4:10 PM CDT Inhaled Oxygen Concentration - - Weight 69.4 kg (153 lb) 11/17/2024 1:42 PM MATERIAL REQUISITIONER Height 160 cm (5' 3 ) 11/17/2024 1:42 PM MATERIAL REQUISITIONER Body Mass Index 27.1 11/17/2024 1:42 PM MATERIAL REQUISITIONER Plan of Treatment Health Maintenance Due Date Last Done Comments Osteoporosis Screening-Bone Density Scan 1945 DTaP/Tdap/Td Vaccine (1 - Tdap) 1958 Hepatitis B Screening 1965 Pneumococcal vaccine 65+ (1 of 1 - PCV) 1997 Zoster Vaccine (1 of 2) 1997 Well Visit 65+ 2012 Fall Risk Assessment 01/25/2021 01/26/2020 Depression Screening 06/25/2024 06/25/2023, 10/16/2022, 01/16/2022 Covid-19 Vaccine ( season) 2024 Influenza Vaccine (#1) 2024 Hepatitis C Screening Completed 04/06/2020 Procedures Procedure Name Priority Date/Time Associated Diagnosis Comments HEPATITIS C ANTIBODY Routine 04/06/2020 9:54 AM CDT from Last 3 Months or Most Recently Relevant to Health Maintenance Results * Hepatitis C antibody (04/06/2020 9:54 AM CDT) Hep C Ab NONREACT NONREACTIVE [facility] Comment: Siemens Cambridge HeartaurX using VERN (chemiluminescent immunoassay) technology. NONREACTIVE: Antibodies [...] AM CDT Narrative Resulting Agency Comment CLI Cristo Summers MD PhD LAB MICROBIOLOGY - GENER AL ORDERABLES Final Result [facility] [place] [address], [facility] [phone] from Last 3 Months or Most Recently Relevant to Health Maintenance Insurance Riskified HEALTHCARE Riskified ADVANTAGE CHOICE PPO Care Teams Benzol Still Operator Relationship Specialty Start Date End Date Keisha Ramirez MD [address] [place] [address] PCP - General Vascular Surgery 12/11/22 Vishnu Yen MD Referring Physician Ophthalmology 01/21/20
--- OUTSIDE RECORDS SUMMARY | 2025-01-12 10:29 | XMS_ITS | Continuity of Care Document ---
Author Organization [facility] Address [address] [place] [address] Phone Care Team Providers Care General Repair Mechanic Name Role Phone No Information Unavailable Unavailable Allergies, Adverse Reactions, Alerts Substance Reaction Status Criticality Sulfa (Sulfonamide Antibiotics) Rash Active No Information Penicillins Rash Active No Information Medications Medication Instructions Dosage Effective Dates (start - stop) Status Comments Synthroid 125 mcg Tab take 1 tablet (125MCG) by oral route every day 125 MCG - Active Diovan HCT 80 mg-12.5 mg tablet take 1 tablet by oral route every day 1.00 tablet - Active Brand name i tramadol 50 mg Tab take 1 tablet (50MG) by oral route every 6 hours as needed 50 MG - Active EpiPen 0.3 mg/0.3 mL (1:1,000) IM Injector inject (0.3MG) by intramuscular route once as needed for anaphylaxis - Active Flonase 50 mcg/Actuation Nasal Martin Inhale two sprays via nostril daily - Active Aspirin 81 mg Tab, Delayed Release Take one tablet by mouth daily. - Active Aleve 220 mg Tab Take one tablet by mouth every 6 hours as needed. - Active Procedures Procedure Date Offic/outpt E&m New Mod Sever 2 Offic/outpt E&m Estab Low-mod [address]; Hg/pltlt Ct Auto/compl 12 Comp Metabolic Panel Venipuncture Amylase Lipase Offic/outpt E&m Estab Mod-hi [address]; Hg/pltlt Ct Auto/compl 12 Comp Metabolic Panel Bld Occult; Feces 1 Specimen Venipuncture Amylase Lipase Offic/outpt E&m Estab Mod-hi 2 12 Ecg-routine 12 Lead; W/intrpt 2 Offic/outpt E&m Estab Low-mod [address]; Hg/pltlt Ct Auto/compl 11 Venipuncture Offic/outpt E&m Estab Mod-hi 2 11 General Health Panel Venipuncture Thyroxine; Free Echo W/rest & Stress-interp & 1 Cv Stress Tst W/pharm; Intrpt 1 Doppler Echo Cont Wave; Complt 11 Dopplr Echo Color Flow Velocit 11 Ecg-routine 12 Lead; W/intrpt 1 Offic/outpt E&m Estab Mod-hi 2 11 Lipid Panel General Health Panel Ua Dip Stick/tablet; Auto W/mi 11 Venipuncture Thyroxine; Free Offic/outpt E&m Estab Mod-hi [address]; Hg/pltlt Ct Auto/compl 10 Comp Metabolic Panel Bld Occult; Feces 1 Specimen Ua Dip Stik/tablet; Wo Micro A 10 Venipuncture Amylase Cult Bacterial Urin; Darryn [place] Sep-10-20 10 Lipase Offic/outpt E&m Estab Low-mod 9 Offic/outpt E&m Estab Low-mod 9 Offic/outpt E&m Estab Low-mod 9 Offic/outpt E&m Estab Mod-hi 2 08 Ua Dip Stik/tablt;wo Micro Non 08 Venipuncture Offic/outpt E&m Estab Low-mod 8 Offic/outpt E&m Estab Low-mod 7 Venipuncture Offic/outpt E&m Estab Low-mod 7 Venipuncture Advance Directives Directive Yes / No Effective Date File Name No Information Encounters Encounter Description Practice Location Reason(s) For Visit Diagnoses Date Provider Providers Copied on Encounter Medical [facility], [address], [place], [place], [address] , tel: [phone] No Information [address] [facility], [address], [place], [place], [id number] , [place] tel:[phone] Antelmo Rosenthal No Information 3 Kenisha Sanabria. [address] [facility], [address], [place], [address], [place]. tel:[phone] Offic/outpt E&m [facility] Sever Medical [facility], [address], [place], [place], [address] , [place] tel:[phone] Antelmo Colirenetta [facility] PAIN, ABD, RUQGALLBLADDER DISORDER, NEC 2 Franca Zuñiga. [address], [address], [place], [place], [address], [place]. tel:[phone] Referring Provider: Christiano Villavicencio, [address] [facility] [address], [place], [address] . tel:[phone] [facility], [address], [place], [place], [address] , [place] tel: [phone] [place] No Information 2 [place]. [address] [facility], [address], [place], [address], [place]. tel:[phone] Offic/outpt E&m Estab Low-mod [facility], [address], [place], [place], [address] , [place] tel: [phone] [place] CHOLECYSTITIS, CHRONICHX COLON POLYPSHTN, BENIGN 2 [place]. [address] [facility], [address], [place], [address], [place]. tel:[phone] Referring Provider: Tremayne Martin, [address], [place], [address] . tel:[phone] [facility], [address], [place], [place], [address] , [place] tel: [phone] [place] No Information 2 Brandon Moreno. [address] [facility] [facility] [address], [place], [place], [address], [place]. tel:[phone] Offic/outpt E&m [facility] 2 [facility], [address], [place], [place], [address] , [place] tel: [phone] [place] LAB RESULT, ABN STOOLABD TENDERNESSCHEST PAIN, UNSPECIFIEDHX COLON POLYPS 2 Mrnsavannah Larsen. [address] [facility], [address], [place], [address]. tel:[phone] Referring Provider: Tremayne Martin, [address], [place], [address] . tel:[phone] Offic/outpt E&m [facility] 2 [facility], [address], [place], [place], [address] , [place] tel: [phone] [place] CHEST PAIN, UNSPECIFIED Mar-2 8-201 2 Sandra Henson. [address] [facility], [address], [place], [place], [address], [place]. tel:[phone] Referring Provider: Christiano Villavicencio, [address] [facility] [address], [place], [address] . tel:[phone] Offic/outpt E&m Estab Low-mod [facility], [address], [place], [place], [address] , [place] tel: [phone] [place] SINUSITIS, ACUTE, UNSPEC.HTN, BENIGN Saad-0 3-201 1 Aleta Casper. [address], [address], [place], [place], [address], [place]. tel:[phone] Referring Provider: Tremayne Martin, [address], [place], [address] . tel:[phone] Offic/outpt E&m Estab Mod-hi 2 [facility], [address], [place], [place], [address] , [place] tel: [phone] [place] HYPOTHYROIDISM, PRIMARY OR NOSSINUSITIS, ACUTE, UNSPEC.FATIGUE/MA LAISEHTN, BENIGN March-2 6-201 1 Mrnsavannah Larsen. [address], [address], [place], [address]. tel:[phone] Referring Provider: Tremayne Martin, [address], [place], [address] . tel:[phone] [facility], [address], [place], [place], [address] , [place] tel: [phone] [place] CHEST PAIN, UNSPECIFIED Mar-0 2-201 1 Aleta Casper. [address], [place], [place], [address], [place]. tel:[phone] Referring Provider: Tremayne Martin, [address] [facility] [address], [place], [address] . tel:[phone] Offic/outpt E&m [address], [address], [place], [place], [address] , [place] tel: [phone] [place] CHOLECYSTITIS, CHRONICCHOLECYSTI TIS, CHRONICHTN, BENIGNHYPOTHYROID ISM, PRIMARY OR NOSSINUSITIS, ACUTE, UNSPEC.CHEST PRESSURE,TIGHTNES S,DISCOMF Feb- 7-201 1 Mrnzohrehraymon Larsen. [address] [facility], [address], [place], [address]. tel:[phone] Referring Provider: Tremayne Martin, [address] [facility] [address], [place], [address] . tel:[phone] Offic/outpt E&m [address], [address], [place], [place], [address] , [place] tel: [phone] Antelmo [place] PAIN, ABD, RUQDIVERTICULOSIS Sep-1 0-201 0 Mrdillonraymon Larsen. [address] [facility], [address], [place], [address]. tel:[phone] Referring Provider: Tremayne Martin, [address] [facility] [address], [place], [address] . tel:[phone] Offic/outpt E&m [facility], [address], [place], [place], [address] , [place] tel: [phone] [place] [facility] CYST BONE LOCALIZED, UNSPECIFIED Nov-0 9-200 9 Brandon Moreno. [address] [facility] [address], [place], [place], [address], [place]. [phone] Referring Provider: Jacob Villa, [address] [facility] [address], [place], [address] . tel:[phone] Offic/outpt E&m Estab [facility], [address], [place], [place], [address] , [place] tel: [phone] [facility] ALLERGIC RHINITIS OTHER ALLERGEN [address] [facility]. [address] [facility] [facility] [address], [place], [place], [address], [place]. tel:[phone] Referring Provider: Tremayne Martin, [address] [facility] [address], [place], [address] . tel:[phone] Offic/outpt E&m Estab [facility], [address], [place], [place], [address] , [place] tel: [phone] [facility] ALLERGIC RHINITIS DUE TO POLLENGANGLION CYST 9 [facility] B[facility]. [address] [facility], [address], [place], [place], [address], [place]. tel:[phone] Referring Provider: Jacob Villa, [address] [facility] [address], [place], [address] . tel:[phone] Offic/outpt E&m Estab [facility], [address], [place], [place], [address] , [place] tel: [phone] [facility] HTN, BENIGNALLERGIC RHINITIS DUE TO POLLENHYPOTHYROID ISM, PRIMARY OR NOSTACHYCARDIA, PAROXYSMAL AVFATIGUE/MALAISE HYPERLIPIDEMIA, MIXED Jul- 6 8 Kenisha Elly. [address] [facility], [address], [place], [address], [place]. tel:[phone] Referring Provider: Yosi Santamaria, [address] [facility] [address], [place], [address] . tel:[phone] Offic/outpt E&m [facility], [address], [place], [place], [address] , [place] tel: [phone] [place] [facility] [facility] BLURRED VISION OR DISTURBANCESHTN, BENIGN 8 [place]. [address] [facility], [address], [place], [address], [place]. tel:[phone] Referring Provider: Christiano Villavicencio, [address] [facility] [address], [place], [address] . tel:[phone] Offic/outpt E&m [facility], [address], [place], [place], [address] , [place] tel: [phone] [facility] TACHYCARDIA, PAROXYSMAL AVHYPOTHYROIDISM, PRIMARY OR NOSHTN, BENIGN 7 Saud Alvarado. [address] [facility], [address], [place], [place], [address], [place]. tel:[phone] Referring Provider: Christiano Villavicencio, [address] [facility] [address], [place], [address] . tel:[phone] Offic/outpt E&m [facility], [address], [place], [place], [address] , [place] tel: [phone] [facility] HTN, BENIGNHYPOTHYROID ISM, PRIMARY OR NOSFATIGUE/MALAIS E 7 Saud Alvarado. [address] [facility], [address], [place], [place], [address], [place]. [phone] Referring Provider: Christiano Villavicencio, [address] [facility] [address], [place], [address] . tel:[phone] [facility], [address], [place], [place], [address] , [place] tel: [phone] [facility] HTN, BENIGNALLERGIC RHINITIS DUE TO POLLENHYPOTHYROID ISM, PRIMARY OR NOS Apr-1 0-200 6 Saud Christiano. [address] [place] [address], [address], [place], [place], [address], [place]. tel:[phone] Referring Provider: Christiano Villavicencio, [address] [place] [address] [address], [place], [address] . tel:[phone] [facility], [address], [place], [place], [address] , [place] tel: [phone] [facility] SINUSITIS, PANSINUSITIS, ACUTEHYPOTHYROIDI SM, PRIMARY OR NOS Paul-2 6-200 6 Saud Christiano. [address] [place] [address], [place] [address], [place], [place], [address], [place]. tel:[phone] Referring Provider: Christiano Villavicencio, [address] [place] [address], [place], [address] . tel:[phone] [facility], [address], [place], [place], [address] , [place] tel: [phone] [facility] CHEST PAIN, UNSPECIFIEDHTN, BENIGNALLERGIC RHINITIS DUE TO POLLENHYPOTHYROID ISM, PRIMARY OR NOSINCONTINENCE, URINE Evan-0 6-200 5 Saud Christiano. [address] [place] [address], [place] [address], [place], [place], [address], [place]. tel:[phone] Referring Provider: Christiano Villavicencio, [address] [place] [address] [address], [place], [address] . tel:[phone] [facility], [address], [place], [address] , [place] tel: [phone] [facility] HTN, BENIGNALLERGIC RHINITIS DUE TO POLLENHYPOTHYROID ISM, PRIMARY OR NOS Apr-0 9-200 4 Saud Christiano. [address] [place] [address], [facility] [address], [place], [place], [address], [place]. tel:[phone] [facility], [address], [place], [place], [address] , [place] tel: [phone] [facility] ALLERGIC RHINITIS DUE TO POLLENHYPOTHYROID ISM, PRIMARY OR NOS 3 Saud Alvarado. [address] [facility], [address], [place], [place], [address], [place]. [phone] Family History Family Member Type Diagnosis Age At Onset Mother Problem (finding) Cancer of the Lung Father Problem (finding) Malaria Mother Problem (finding) Stroke, [place] Siblings Problem (finding) None Father Problem (finding) Coronary Artery Dise Payers Payer name Insurance type Covered democrat ID Authoriza tion(s) No Information Social History Type Description Quantity Date Captured Comments Alcohol Use Details wine 2 Caffeine Use Details 2 cups per day Tobacco Use Status No Information Smoking Status No Information Sex Female Chief Complaint And Reason For Visit No Information Reason For Referral Reason For Referral No Information Plan Of Treatment Date Type Action Status Referral Referred To: Bernard YOUNGBLOOD, Josiah Sharma [address] [place], [phone] Ordered: Referrals: Gastroenterology - Josiah Wagner MD ordered Referral Referred To: [facility] [address] [place], [phone] Ordered: Diagnostic Order: ordered History Of Present Illness Encounter Date Complaint History Of Prese nt Illness No Information Functional Status Date Functional Assessmen t No Information Instructions Date Instruction Additional Infor carlos Converted from Health Monitor Assessments Type Assessment Date No Information Patient Care Teams Name Effective Dates (start - stop) Status Members No Information
[2025-01-12 10:34] LABS: Alanine Aminotransferase 27 U/L (6-35); Albumin Level 4.3 g/dL (3.5-5.1); Alkaline Phosphatase 71 U/L (38-126); Anion Gap 7 mmol/L (4-12); Aspartate Amino Transferase 29 U/L (14-36); Bilirubin,Total 0.6 mg/dL (0.2-1.3); Blood Urea Nitrogen 19 mg/dL (7-17); Calcium 9.4 mg/dL (8.4-10.2); Carbon Dioxide 30 mmol/L (22-30); Chloride 104 mmol/L (98-107); Cholesterol 218 mg/dL (0-200); Estimated Glomerular Filt Rate > 60; Glucose 102 mg/dL (65-110); HDL Direct 43 mg/dL; Potassium 4.8 mmol/L (3.4-5.0); Sodium 141 mmol/L (137-145); Triglycerides 232 mg/dL (<150)
[2025-01-12 10:44] LABS: Hemoglobin A1C 5.4 % (<5.7); LDL Cholesterol Direct 121 mg/dL
[2025-01-12 11:07] LABS: Vitamin D 25 Hydroxy 37.6 ng/mL
== END 2025-01-12 09:38 | disposition home or self-care (01) ==
LOC: ANHLAB 09:38
PROVIDERS: PCP Internal Medicine; Visit Provider Internal Medicine
DX: E03.9 Hypothyroidism, unspecified (principal); R73.02 Impaired glucose tolerance (oral); E78.5 Hyperlipidemia, unspecified; E55.9 Vitamin D deficiency, unspecified; R53.83 Other fatigue; I10 Essential (primary) hypertension
CPT/HCPCS: 36415; 80053; 80061; 82306; 83036; 84443; 85025